=== PATIENT | male | born 2000 | race Caucasian/White ===

== ENCOUNTER 2024-07-29 18:59 | Emergency (ER) | payer OTHER, MEDICAID, SELFPAY ==
[2024-07-29 19:07] VITALS: BP 126/74; PULSE 65; TEMP 37; O2SAT 98; BMI 21.6
[2024-07-29 19:45] LABS: Influenza Virus A Antigen Negative; Influenza Virus B Antigen Negative; Internal Control Within Normal Limits; SARS-CoV-2 Ag NEGATIVE (NEGATIVE)
--- NOTE | 2024-07-29 19:53 | ED.URI1 ---
HPI - URI/Sore Throat General Chief Complaint: Upper Respiratory Infection Stated Complaint: FLU EXPOSURE Time Seen by Provider: 07/29/24 19:53 Source: patient Limitations: no limitations History of Present Illness HPI Narrative: 23 year old male presents to the ED for cough, congestion. Onset was a few days ago. His children and significant other have also been ill. Denies fever, chills, SOB, sore throat, N/V/D. Related Data Allergies Allergy/AdvReac Type Severity Reaction Status Date / Time No Known Drug Allergies Allergy Verified 07/29/24 19:07 Review of Systems ROS Constitutional Denies: fever or chills Ears, nose, mouth, and throat Reports: nasal discharge and nasal congestion; Denies: throat pain, neck pain, throat swelling, ear pain or ear discharge Cardiovascular Denies: chest pain Respiratory Reports: cough; Denies: shortness of breath Gastrointestinal Denies: abdominal pain, vomiting or diarrhea Musculoskeletal Denies: back pain or neck pain Neurological Denies: headache PFSH PFSH Social History Little interest or pleasure in doing things: not at all Feeling down, depressed, or hopeless: not at all Exam Constitutional Vital Signs, click to edit/add: Last Vital Signs Temp 98.6 F 07/29/24 19:07 Pulse 65 07/29/24 19:07 Resp 16 07/29/24 19:07 BP 126/74 07/29/24 19:07 Pulse Ox 98 07/29/24 19:07 O2 Del Method Room Air 07/29/24 19:07 Common normals: no apparent distress and oriented x3 General appearance: cooperative; not ill appearing [facility] Common normals: external ears normal, moist oral mucous membranes and oropharynx normal Eye Common normals: conjunctivae normal and no scleral icterus Neck & C-Spine Common normals: supple Chest Chest: symmetrical chest wall rise Respiratory Common normals: normal respiratory effort and clear to auscultation bilaterally Effort & inspection: able to speak in complete sentences and symmetric chest movement Cardio Common normals: regular rate and regular rhythm Neuro Common normals: oriented x3, moves all extremities and no focal motor deficits Sensorium/orientation: awake and alert Speech: speech normal Course Vital Signs Vital signs: Vital Signs Temperature 98.6 F 07/29/24 19:07 Pulse Rate 65 07/29/24 19:07 Respiratory Rate 16 07/29/24 19:07 Blood Pressure 126/74 07/29/24 19:07 Pulse Oximetry 98 07/29/24 19:07 Oxygen Delivery Method Room Air 07/29/24 19:07 Temperature 98.6 F 07/29/24 19:07 Pulse Rate 65 07/29/24 19:07 Respiratory Rate 16 07/29/24 19:07 Blood Pressure 126/74 07/29/24 19:07 Pulse Oximetry 98 07/29/24 19:07 Oxygen Delivery Method Room Air 07/29/24 19:07 MDM - URI/Sore Throat MDM Narrative Medical decision making narrative: Covid-19 and influenza were negative. Findings were discussed. Follow up with pcp for a recheck, further evaluation and treatment. Differential Diagnosis Differential diagnosis: Likely upper respiratory infection, influenza and other (Covid-19) Medical Records Attestation: I reviewed the patient's medical records. Lab Data Attestation: I reviewed the patient's lab results. Labs: Lab Results 07/29/24 Range/Units 19:10 Influenza Type A Ag Negative Influenza Type B Ag Negative SARS-CoV-2 Ag (CV2AG) Negative (NEGATIVE) Discharge Plan Discharge Chief Complaint: Upper Respiratory Infection Clinical Impression: Upper respiratory infection, viral Patient Disposition: Home, Self-Care Time of Disposition Decision: 19:54 Condition: Good Mode of Transportation: Private Vehicle Print Language: Slovenian Instructions: Upper Respiratory Infection (ED) Additional Instructions: Return to the ER for worsening symptoms. Referrals: Physician,Non-Staff, MD [Primary Care Provider] - 1 week Discharge Date/Time: 07/29/24 20:05
== END 2024-07-29 20:05 | disposition home or self-care (01) ==
PROVIDERS: Nurse Practitioner Family; Emergency Provider Internal Medicine
DX: J06.9 Acute upper respiratory infection, unspecified (principal)
CPT/HCPCS: 87804; 87811; 99284